=== PATIENT | male | born 1980 | race Caucasian/White ===

== ENCOUNTER 2020-02-02 14:13 | Emergency (ER) | payer SELFPAY ==
[~2020-02-02] VITALS: Ht 167.6 cm; Wt 79.4 kg
[2020-02-02 14:25] VITALS: BP 159/75
--- NOTE | 2020-02-02 14:28 | NUR ---
Pt taken to bed 11.
--- NOTE | 2020-02-02 14:30 | NUR ---
Pt c/o laceration to right index finger, cut with glass approximately 30 mins ago. PT DENIES ANY FEVER, CP, SOB, OR COUGH AT THIS TIME; PATIENT STATES PAIN OF 4/10 AT THIS TIME; VSS; PATIENT POSITIONED FOR COMFORT; HOB ELEVATED; BEDRAILS UP X1; BED DOWN. ER MD MADE AWARE OF PT STATUS.
[2020-02-02] MEDS ORDERED: BACITRACIN OINT 500 UNITS/GM PKT TP ONE (14:35)
[2020-02-02] MEDS ORDERED: LIDOCAINE MPF 1% 10 MG/ML VIAL INJ ONE (14:35)
[2020-02-02 15:42] VITALS: BP 131/71
--- NOTE | 2020-02-02 15:42 | NUR ---
Patient discharged with v/s stable. Written and verbal after care instructions given and explained. Patient alert, oriented and verbalized understanding of instructions. Ambulatory with steady gait. All questions addressed prior to discharge. ID band removed. Patient advised to follow up with PMD. Rx of Ibuprofen and Bacitracin given. Patient educated on indication of medication including possible reaction and side effects. Opportunity to ask questions provided and answered.
== END 2020-02-02 15:42 | disposition home or self-care (01) ==
LOC: MED 14:13
DX: S61.210A Laceration without foreign body of right index finger without damage to nail, initial encounter (principal); W45.8XXA Other foreign body or object entering through skin, initial encounter; Y93.89 Activity, other specified; Y92.89 Other specified places as the place of occurrence of the external cause; Y99.8 Other external cause status
CPT/HCPCS: 12001; 90471; 90715; 99283; J2001

== ENCOUNTER 2020-02-04 17:36 | Emergency (ER) | payer SELFPAY ==
[~2020-02-04] VITALS: Ht 162.6 cm; Wt 63.5 kg
[2020-02-04 17:47] VITALS: BP 137/79
--- NOTE | 2020-02-04 18:01 | NUR ---
39 Y/O MALE PRESENTS TO ER FOR FOLLOW UP CARE ON RIGHT INDEX FINGER S/P SUTURES PLACE ON 02/02/2020 AFTER CUTTING FINGER WITH GLASS. SKIN IN COOL, DRY. NO DRAINAGE/SWELLING/ REDNESS NOTED. PT DENIES ANY PAIN AT THIS TIME. CMS+. RADIAL PULSE PRESENT. CAP REFILL <3. AFEBRILE.
[2020-02-04 18:46] VITALS: BP 137/79
--- NOTE | 2020-02-04 18:46 | NUR ---
Patient discharged with v/s stable. Written and verbal after care instructions given and explained. Patient verbalized understanding. Ambulatory with steady gait. All questions addressed prior to discharge. Advised to follow up with PMD.
== END 2020-02-04 18:46 | disposition home or self-care (01) ==
LOC: MED 17:36
DX: S61.210D Laceration without foreign body of right index finger without damage to nail, subsequent encounter (principal); R03.0 Elevated blood-pressure reading, without diagnosis of hypertension; Z48.00 Encounter for change or removal of nonsurgical wound dressing; W26.8XXD Contact with other sharp object(s), not elsewhere classified, subsequent encounter
CPT/HCPCS: 99281